=== PATIENT | female | born 1970 | race African-American/Black ===

== ENCOUNTER 2023-10-08 14:42 | Emergency (ER) | payer OTHER ==
[~2023-10-08] VITALS: Ht 162.6 cm; Wt 73.0 kg
[2023-10-08 14:53] VITALS: BP 127/87; PULSE 107; RESP 18; TEMP 98.1; O2SAT 98
[2023-10-08 16:38] LABS: BASOPHILS % (AUTO) 0.7 % (0.0-2.0); EOSINOPHILS % (AUTO) 0.3 % (0.0-4.0); HEMATOCRIT 43.1 % (36-48); HEMOGLOBIN 14.2 g/dL (12.0-16.0); LYMPHOCYTES # (AUTO) 1.9 K/uL (2.5-16.5); LYMPHOCYTES % (AUTO) 38.9 % (20.5-51.1); MEAN CORPUSCULAR HEMOGLOBIN 28 pg (27-31); MEAN CORPUSCULAR HGB CONC 33 g/dL (33-37); MEAN CORPUSCULAR VOLUME 85.4 fL (80-94); MONOCYTES # (AUTO) 0.4 K/uL (0.8-1.0); MONOCYTES % (AUTO) 8.4 % (1.7-9.3); NEUTROPHILS # (AUTO) 2.5 K/uL (1.8-7.7); NEUTROPHILS % (AUTO) 51.7 % (42.2-75.2); PLATELET COUNT (AUTO) 259 K/uL (140-450); RED BLOOD CELL COUNT(AUTO) 5.05 MIL/uL (4.20-5.40); RED CELL DISTRIBUTION WIDTH 13.1 % (11.6-13.7); WHITE BLOOD COUNT (AUTO) 4.9 K/uL (4.8-10.8)
[2023-10-08 16:43] LABS: ANION GAP 12.4 (8-16); CARBON DIOXIDE 28.2 mmol/L (21-32); CREATININE 0.8 mg/dL (0.6-1.3); POTASSIUM 4.6 mmol/L (3.5-5.1)
[2023-10-08] MEDS: NACL 0.9% 1,000 ML IV ONE (17:29)
[2023-10-08] MEDS ORDERED: BENZ200C4 PO (18:09)
[2023-10-08 18:12] VITALS: TEMP 98.1
[2023-10-08 18:21] VITALS: BP 143/92; PULSE 90; RESP 16; O2SAT 98
== END 2023-10-08 18:21 | disposition home or self-care (01) ==
LOC: MED 14:42
DX: J06.9 Acute upper respiratory infection, unspecified (principal); J40 Bronchitis, not specified as acute or chronic; R07.9 Chest pain, unspecified; Z79.899 Other long term (current) drug therapy
CPT/HCPCS: 36415; 71045; 80048; 85025; 96360; 99284; J7030